=== PATIENT | female | born 1955 | race Caucasian/White ===

== ENCOUNTER 2020-02-08 10:32 | Outpatient (REF) | payer MEDICARE, SELFPAY ==
--- NOTE | 2020-02-08 | MM_ITS ---
EXAMINATION: MM SCREENING DIGITAL BREAST TOMOSYNTHESIS, BILATERAL CLINICAL INFORMATION: Screening. Asymptomatic. The lifetime risk of breast cancer based on the Tyrer-Cuzick Model is 9%. COMPARISON: Mammography: 02/02/2019, 01/28/2018 TECHNIQUE: Digital breast tomosynthesis is performed in both the craniocaudal and mediolateral oblique views along with computer-aided detection (CAD). Synthesized 2D images are generated from the tomosynthesis. Additional exaggerated left CC view is provided. FINDINGS: There are scattered areas of fibroglandular density (ACR BI-RADS breast composition Category b). Breast tissue composition borders on predominantly fatty. Background stromal densities are stable. There is no interval mass or architectural abnormality or abnormal calcifications. The axilla and skin contours are unremarkable. MM/MM tomosynthesis screening BI IMPRESSION: No mammographic evidence of malignancy. ASSESSMENT: BI-RADS 1: Negative RECOMMENDATION: Routine annual mammography screening. This patient's information was entered into a reminder system with a target due date for their next mammogram.
== END 2020-02-08 10:33 | disposition home or self-care (01) ==
LOC: HO.MAMMO 10:32
PROVIDERS: PCP Nurse Practitioner Family; Visit Provider Nurse Practitioner Family
DX: Z12.31 Encounter for screening mammogram for malignant neoplasm of breast (principal)
CPT/HCPCS: 77063; 77067

== ENCOUNTER 2021-02-09 10:32 | Outpatient (REF) | payer MEDICARE, SELFPAY ==
--- NOTE | ~2021-02-09 | MM_ITS ---
EXAMINATION: MM SCREENING DIGITAL BREAST TOMOSYNTHESIS, BILATERAL CLINICAL INFORMATION: Screening. Asymptomatic. The lifetime risk of breast cancer based on the Tyrer-Cuzick Model is 8%. COMPARISON: Mammography: 02/08/2020, 02/02/2019, 01/28/2018 TECHNIQUE: Digital breast tomosynthesis is performed in both the craniocaudal and mediolateral oblique views along with computer-aided detection (CAD). Synthesized 2D images are generated from the tomosynthesis. FINDINGS: There are scattered areas of fibroglandular density (ACR BI-RADS breast composition Category b). There are no significant masses, abnormal calcifications, or other abnormalities. MM/MM tomosynthesis screening BI IMPRESSION: No mammographic evidence of malignancy. ASSESSMENT: BI-RADS 1: Negative RECOMMENDATION: Routine annual mammography screening. This patient's information was entered into a reminder system with a target due date for their next mammogram.
== END 2021-02-09 10:33 | disposition home or self-care (01) ==
LOC: HO.MAMMO 10:32
PROVIDERS: PCP Nurse Practitioner Family; Visit Provider Nurse Practitioner Family
DX: Z12.31 Encounter for screening mammogram for malignant neoplasm of breast (principal)
CPT/HCPCS: 77063; 77067

== ENCOUNTER 2021-11-25 14:41 | Outpatient (REF) | payer MEDICARE, SELFPAY ==
--- NOTE | ~2021-11-25 | MM_ITS ---
EXAMINATION: MM DIAGNOSTIC DIGITAL BREAST TOMOSYNTHESIS, BILATERAL US DIAGNOSTIC ULTRASOUND BREAST, LEFT CLINICAL INFORMATION: 66-year-old with superficial palpable area left breast lower inner quadrant. History recent ecchymosis in this area left breast. Due for yearly. Family history breast cancer, sister, age 40. The lifetime risk of breast cancer based on the Tyrer-Cuzick Model is 8%. COMPARISON: Mammography: 02/09/2021, 02/08/2020, 02/02/2019 TECHNIQUE: Digital breast tomosynthesis is performed in both the craniocaudal and mediolateral oblique views along with computer-aided detection (CAD). Synthesized 2D images are generated from the tomosynthesis. Additional spot rolled left CC view is performed. Ultrasound left breast is targeted to the palpable concern lower inner breast. Grayscale imaging and color Doppler are performed without and with harmonics. FINDINGS: There are scattered areas of fibroglandular density (ACR BI-RADS breast composition Category b). Breast tissue composition borders on predominantly fatty. The area of clinical concern left breast corresponds to a very subtle oval faint density approximately 0.7 x 1.1 cm with a smaller central fatty composition, suggesting fat necrosis. The remainder of the left breast and the right breast are unremarkable. The right breast shows no mass or architectural abnormality. Neither breast shows abnormal calcifications. The axilla are unremarkable. No skin thickening or coarsening of the Cheko's ligaments. Ultrasound left breast demonstrates subtle anechoic lesion superficial breast 9:00 position measuring approximately 1.0 x 0.3 x 0.7 cm. There is very subtle surrounding hyperechogenicity. There is no increased or decreased through transmission of sound. No surrounding or internal color flow. Findings are suggestive of fat necrosis. Results are discussed with the patient at time of visit. The left mammographic and ultrasound findings are suggestive of benign fat necrosis and consistent with the clinical history of recent left breast ecchymosis. Follow-up imaging in 6 months is recommended. MM/MM tomosynthesis diagnostic BI IMPRESSION: Left: -Subtle oval area of probable fat necrosis at site of clinical concern lower inner left breast. Right: -No mammographic evidence of malignancy. ASSESSMENT: BI-RADS 3: Probably Benign RECOMMENDATION: Diagnostic left mammography and targeted ultrasound in 6 months. This patient's information was entered into a reminder system with a target due date for their next mammogram.
== END 2021-11-25 14:42 | disposition home or self-care (01) ==
LOC: HO.MAMMO 14:41
PROVIDERS: Visit Provider Nurse Practitioner Family
DX: N63.24 Unspecified lump in the left breast, lower inner quadrant (principal); Z80.3 Family history of malignant neoplasm of breast
CPT/HCPCS: 76642; 77062; 77066

== ENCOUNTER 2022-06-02 13:15 | Outpatient (REF) | payer MEDICARE, SELFPAY ==
--- NOTE | ~2022-06-02 | MM_ITS ---
EXAMINATION: MM DIAGNOSTIC DIGITAL BREAST TOMOSYNTHESIS, LEFT US DIAGNOSTIC ULTRASOUND BREAST, LEFT CLINICAL INFORMATION: Short interval six-month follow-up probable focal fat necrosis superficial 9:00 left breast. Prior history ecchymosis near this area, subsequently resolved. Patient's palpable concern resolved. Family history breast cancer, sister The lifetime risk of breast cancer based on the Tyrer-Cuzick Model is 8%. COMPARISON: Mammography: 11/25/2021 (diagnostic, BI-RADS 3), 02/09/2021, 02/08/2020, 02/02/2019 TECHNIQUE: Digital breast tomosynthesis is performed in both the craniocaudal and mediolateral oblique views along with computer-aided detection (CAD). Synthesized 2D images are generated from the tomosynthesis. Ultrasound left breast is targeted to the medial breast using grayscale imaging and color Doppler without and with harmonics. FINDINGS: There are scattered areas of fibroglandular density (ACR BI-RADS breast composition Category b). Breast tissue composition borders on predominantly fatty. The area for follow-up is substantially decreased in conspicuity. There is no developing density or interval architectural abnormality. No skin thickening. No abnormal calcifications in the left breast. No axillary adenopathy. Skin contours are smooth. Ultrasound demonstrates small hypoechoic area with surrounding hyperechogenicity substantially decreased in size from prior imaging. Results are discussed with the patient at time of visit. The findings are regressing as anticipated. Management plan is for diagnostic mammography at time of annual bilateral exam, due in 6 months. MM/MM tomosynthesis diagnostic LT IMPRESSION: Suspected fat necrosis mid medial left breast is decreased on both mammography and ultrasound as anticipated. No developing density or suspicious changes. ASSESSMENT: BI-RADS 3: Probably Benign RECOMMENDATION: Diagnostic mammography at time of annual bilateral mammography, due in 6 months. This patient's information was entered into a reminder system with a target due date for their next mammogram.
== END 2022-06-02 13:16 | disposition home or self-care (01) ==
LOC: HO.MAMMO 13:15
PROVIDERS: Visit Provider Nurse Practitioner Family
DX: N63.25 Unspecified lump in the left breast, overlapping quadrants (principal)
CPT/HCPCS: 76642; 77061; 77065

== ENCOUNTER 2022-12-22 12:14 | Outpatient (REF) | payer MEDICARE, SELFPAY ==
--- NOTE | ~2022-12-22 | MM_ITS ---
EXAMINATION: MM DIAGNOSTIC DIGITAL BREAST TOMOSYNTHESIS, BILATERAL CLINICAL INFORMATION: Follow-up probable focus of fat necrosis and bruising left breast 9:00 axis. COMPARISON: Mammography: 06/02/2022 mammography and ultrasound, as well as 11/25/2021. TECHNIQUE: Digital breast tomosynthesis is performed in both the craniocaudal and mediolateral oblique views along with computer-aided detection (CAD). Synthesized 2D images are generated from the tomosynthesis. FINDINGS: There are scattered areas of fibroglandular density (ACR BI-RADS breast composition Category b). There are no suspicious masses, suspicious grouped calcifications, or areas of architectural distortion in either breast. The parenchymal pattern is stable from prior exams. The previously seen subtle density superficially at the 9:00 axis has resolved. MM/MM tomosynthesis diagnostic BI IMPRESSION: There are no findings suspicious for malignancy in either breast. The previously seen subtle density superficially at the 9:00 axis of the left breast has resolved. Recommend returning to routine screening mammography. ASSESSMENT: BI-RADS BI-RADS 1 - Negative RECOMMENDATION: 1 year F/U Results were provided to the patient at time of visit by the technologist. This patient's information was entered into a reminder system with a target due date for their next mammogram.
== END 2022-12-22 12:15 | disposition home or self-care (01) ==
LOC: HO.MAMMO 12:14
PROVIDERS: PCP Internal Medicine; Visit Provider Nurse Practitioner Family
DX: N63.25 Unspecified lump in the left breast, overlapping quadrants (principal)
CPT/HCPCS: 77062; 77066

== ENCOUNTER → 2022-12-22 12:30 | Outpatient (BNV) | payer MEDICARE, SELFPAY | PROVIDERS: PCP Internal Medicine; Visit Provider Radiology Diagnostic Radiology | DX: N64.1 Fat necrosis of breast (principal) | CPT/HCPCS: 77066 ==

== ENCOUNTER 2023-11-06 07:10 | Day surgery (SDC) | payer MEDICARE, SELFPAY ==
[2023-11-05 07:00] VITALS: BMI 39.6
--- NOTE | 2023-11-05 10:07 | P.CONAN_ITS ---
Documented by User: Kandy Felix NP 11/05/23 10:07 HPI - Anesthesia Eval Consult details Narrative: 68yo F for Upper Endoscopy PMFSH Past Medical History Medical History Weakness Thyroid disease HTN (hypertension) Hiatal hernia GERD (gastroesophageal reflux disease) Surgical History Surgical History Hx of cataract extraction Hx of dilation and curettage History of carpal tunnel surgery of right wrist History of right hip replacement History of surgery on lower extremity History of esophagogastroduodenoscopy (EGD) H/O colonoscopy Social History Social History Patient Tobacco Use Status: Former Tobacco user Use of substances other than those prescribed or required for medical reasons: No Have you been hit, kicked, punched, or otherwise hurt by someone within the past year? If so, by whom?: No Are you DNR?: No Advance Directives: No Advance Directives Information Provided: Yes Recently lost weight without trying: No Nutrition Risks: No Nutritional Risk Meds Allergies Allergy/AdvReac Type Severity Reaction Status Date / Time No Known Allergies Allergy Verified 11/06/23 08:00 Home Medications ?Medication ?Instructions ?Recorded ?Confirmed ?Last Taken ?Type albuterol sulfate 90 mcg/actuation 2 puff inhalation Q4-6H 11/05/23 11/06/23 11/05/23 History aerosol inhaler amlodipine 5 mg-benazepril 10 mg 1 cap PO DAILY 11/05/23 11/06/23 11/05/23 History capsule cholecalciferol (vitamin D3) 25 25 mcg PO DAILY 11/05/23 11/06/23 11/05/23 History mcg (1,000 unit) capsule (Vitamin D3) cranberry fruit 450 mg tablet 450 mg PO DAILY 11/05/23 11/06/23 11/05/23 History (cranberry) cyanocobalamin (vitamin B-12) 1,000 mcg PO DAILY 11/05/23 11/06/23 11/05/23 History 1,000 mcg tablet (Vitamin B-12) fexofenadine 180 mg tablet 180 mg PO DAILY PRN Allergy 11/05/23 11/05/23 Unknown History (Joslyn Allergy) Symptoms fluticasone propionate 110 1 puff inhalation BID PRN 11/05/23 11/05/23 Unknown History mcg/actuation HFA aerosol inhaler Shortness Of Breath Or Wheezing gabapentin 600 mg tablet 600 mg PO DAILY 11/05/23 11/06/23 11/05/23 History ibuprofen 200 mg tablet 200 mg PO Q6H PRN Pain 11/05/23 11/06/23 10/30/23 History levothyroxine 150 mcg tablet 150 mcg PO DAILY 11/05/23 11/06/23 11/05/23 History omeprazole 40 mg capsule,delayed 40 mg PO BID 11/05/23 11/06/23 11/06/23 History release simvastatin 20 mg tablet 20 mg PO BEDTIME 11/05/23 11/06/23 11/05/23 History Exam Height,Weight and Vital Signs: Height 5 ft 4 in Weight 104.78 kg Assessment and Plan Assessment Anesthesia Assessment: Chart Reviewed Documented by User: Letitia Elliott MD 11/06/23 08:37 [facility] Active Problems Active Problems: HTN Hyperlipidemia GERD Hypothyroidism Right LE nerve pain Increased BMI Post- polio syndrome- Left LE weakness H/o bronchitis. Albuterol prn Past Medical History Medical History Weakness Thyroid disease HTN (hypertension) Hiatal hernia GERD (gastroesophageal reflux disease) Family History Family history of problems with anesthesia: No Surgical History Surgical History Hx of cataract extraction Hx of dilation and curettage History of carpal tunnel surgery of right wrist History of right hip replacement History of surgery on lower extremity History of esophagogastroduodenoscopy (EGD) H/O colonoscopy History of Problems with Anesthesia: No Social History Social History Patient Tobacco Use Status: Former Tobacco user Use of substances other than those prescribed or required for medical reasons: No Have you been hit, kicked, punched, or otherwise hurt by someone within the past year? If so, by whom?: No Are you DNR?: No Advance Directives: No Advance Directives Information Provided: Yes Recently lost weight without trying: No Nutrition Risks: No Nutritional Risk Meds Allergies Allergy/AdvReac Type Severity Reaction Status Date / Time No Known Allergies Allergy Verified 11/06/23 08:00 Home Medications ?Medication ?Instructions ?Recorded ?Confirmed ?Last Taken ?Type albuterol sulfate 90 mcg/actuation 2 puff inhalation Q4-6H 11/05/23 11/06/23 11/05/23 History aerosol inhaler amlodipine 5 mg-benazepril 10 mg 1 cap PO DAILY 11/05/23 11/06/23 11/05/23 History capsule cholecalciferol (vitamin D3) 25 25 mcg PO DAILY 11/05/23 11/06/23 11/05/23 Hi story mcg (1,000 unit) capsule (Vitamin D3) cranberry fruit 450 mg tablet 450 mg PO DAILY 11/05/23 11/06/23 11/05/23 History (cranberry) cyanocobalamin (vitamin B-12) 1,000 mcg PO DAILY 11/05/23 11/06/23 11/05/23 History 1,000 mcg tablet (Vitamin B-12) fexofenadine 180 mg tablet 180 mg PO DAILY PRN Allergy 11/05/23 11/05/23 Unknown History (Joslyn Allergy) Symptoms fluticasone propionate 110 1 puff inhalation BID PRN 11/05/23 11/05/23 Unknown History mcg/actuation HFA aerosol inhaler Shortness Of Breath Or Wheezing gabapentin 600 mg tablet 600 mg PO DAILY 11/05/23 11/06/23 11/05/23 History ibuprofen 200 mg tablet 200 mg PO Q6H PRN Pain 11/05/23 11/06/23 10/30/23 History levothyroxine 150 mcg tablet 150 mcg PO DAILY 11/05/23 11/06/23 11/05/23 History omeprazole 40 mg capsule,delayed 40 mg PO BID 11/05/23 11/06/23 11/06/23 History release simvastatin 20 mg tablet 20 mg PO BEDTIME 11/05/23 11/06/23 11/05/23 History Exam Height,Weight and Vital Signs: Height 5 ft 4 in Weight 104.78 kg Vital Signs Temp Pulse Resp BP Pulse Ox O2 Del Method 11/06/23 07:57 98.6 F 76 16 176/82 H 96 Room Air Airway Mallampati Class: III (Small mouth) TM Dist: >3cm Neck ROM: Full Partial: Upper Loose/Missing/Broken Teeth: Yes (Denies broken or loose teeth) Heart: RRR Lungs: CTAB Assessment and Plan Assessment Anesthesia Assessment: Anesthesia Plan Discussed and Chart Reviewed Final Anesthetic Review Family History of Problems with Anesthesia: No History of Problems with Anesthesia: No NPO: Yes ASA Class: III Final Preanesthetic Review: No Changes in Pt Med Stat, Meds/Allgs Chart Reviewed, Consent Obtained/Reviewed and Anes Risks/Benef Reviewed Patient Risk: Intermediate Procedure Risk: Low Assessment/Block/Sedation in SS: Assess/Block/Sedation-SS Anesthetic Plan Anesthetic Plan: TIVA Disposition: Standard PACU
[2023-11-06 07:50] VITALS: BMI 39.5
[2023-11-06 07:57] VITALS: BP 176/82; PULSE 76; RESP 16; TEMP 37; O2SAT 96
[2023-11-06] MEDS: Lactated Ringers 1,000 ML 100 ML IVCONT (07:58)
--- NOTE | 2023-11-06 09:08 | PM.OP ---
Brief Operative Note Date of Service: 11/06/23 Pre-op diagnosis: GERD, Globus Post-op diagnosis: other (Hiatal hernia, R/O EoE) Procedure: EGD with biopsies Surgeon: Logan Solorio MD Anesthesia: MAC Was an [employer] used for this Procedure?: No Estimated blood loss (mL): 2.0 Pathology: other (A. EG Junction at 32cm B. Esophagus 20-25cm) Condition: stable Disposition: PACU
[2023-11-06 09:10] VITALS: BP 120/62; PULSE 78; RESP 16; TEMP 36.2; O2SAT 95
[2023-11-06 09:25] VITALS: BP 136/72; PULSE 64; RESP 18; TEMP 36.3; O2SAT 98
--- NOTE | 2023-11-06 09:33 | OP_ITS ---
DATE OF SERVICE: 11/06/2023 SURGEON: Logan Solorio MD INDICATIONS: The patient presents for evaluation of chronic gastroesophageal reflux and a globus sensation. Full consent has been obtained from her for this, including risks of bleeding and perforation. PREOPERATIVE DIAGNOSIS: POSTOPERATIVE DIAGNOSIS: PROCEDURE PERFORMED: Esophagogastroduodenoscopy with biopsies. ESTIMATED BLOOD LOSS: COMPLICATIONS: ANESTHESIA: Monitored anesthesia care. ASSISTANTS: SPECIMENS: PREOPERATIVE DIAGNOSES: Gastroesophageal reflux and globus. POSTOPERATIVE DIAGNOSES: Gastroesophageal reflux and globus, hiatal hernia, rule out eosinophilic esophagitis. DESCRIPTION OF PROCEDURE: The patient was placed in the left lateral decubitus position. The Olympus video gastroscope was passed in the posterior oropharynx and upper esophagus under direct vision. The scope was passed slowly into the distal esophagus. The gastroesophageal junction appeared at 32 cm. There was some slight irregularity consistent with some reflux and possibly a small area of Noriega mucosa. There was no esophagitis nor any lesions. The scope entered the stomach. There was a moderate-sized hiatal hernia with a diaphragmatic indentation seen at approximately 35 or 36 cm. The hiatal hernia mucosa appeared normal. The scope was advanced to the pylorus, and the duodenum was cannulated to the descending portion. The duodenum including the bulb appeared normal without mass or ulceration. The scope was withdrawn back to the stomach. The gastric antrum and body appeared normal with good peristalsis. The scope was retroflexed, visualizing the proximal stomach carefully, which appeared normal, without any sign of mass or ulceration. The scope was straightened and withdrawn back to the esophagus. Biopsies were obtained at the EG junction at 32 cm. The scope was then withdrawn through the remainder of the esophagus. The esophagus appeared somewhat tortuous but no sign of any other mucosal abnormalities. There were no proximal esophageal rings. I did obtain biopsies between 20 and 25 cm. The scope was withdrawn from the patient. She tolerated the procedure well, and was returned to the recovery area in stable condition. IMPRESSION: 1. Hiatal hernia. 2. Gastroesophageal reflux. PLAN: The results of the biopsies will be checked. Since I saw her in the office in June, she has been using omeprazole 40 mg twice a day instead of the once a day as she had been having increasing heartburn on the just daily dose. She does report that since being on the omeprazole twice a day, she has had significant improvement in her heartburn symptoms. She thinks the globus sensation is somewhat diminished as well. At this point, I would have her continue the b.i.d. omeprazole. She will see me in followup as well. MD RETA Brady/DEBBY / [phone]
== END 2023-11-06 10:06 | disposition home or self-care (01) ==
PROVIDERS: PCP Internal Medicine; Visit Provider Internal Medicine
PROC: 0DJ08ZZ Inspection of Upper Intestinal Tract, Via Natural or Artificial Opening Endoscopic (ICD-10-PCS; CPT 43235; principal; 2023-11-06 08:30)
DX: K21.9 Gastro-esophageal reflux disease without esophagitis (principal); R09.89 Other specified symptoms and signs involving the circulatory and respiratory systems; R09.A2 Foreign body sensation, throat; K44.9 Diaphragmatic hernia without obstruction or gangrene; I10 Essential (primary) hypertension; Z79.899 Other long term (current) drug therapy; Z87.891 Personal history of nicotine dependence
CPT/HCPCS: 43239; 88305; 88313; J2704

== ENCOUNTER 2023-12-29 08:52 | Outpatient (REF) | payer MEDICARE, SELFPAY ==
--- NOTE | ~2023-12-29 | MM_ITS ---
EXAMINATION: MM SCREENING DIGITAL BREAST TOMOSYNTHESIS, BILATERAL CLINICAL INFORMATION: Screening. Asymptomatic. COMPARISON: Mammography: Comparison is made with available priors TECHNIQUE: Digital breast mammography with tomosynthesis is performed in both the craniocaudal and mediolateral oblique views along with computer-aided detection (CAD). FINDINGS: There are scattered areas of fibroglandular density (ACR BI-RADS breast composition Category b). There are no significant masses, abnormal calcifications, or other abnormalities. MM/MM tomosynthesis screening BI IMPRESSION: No mammographic evidence of malignancy. ASSESSMENT: BI-RADS BI-RADS 1 - Negative RECOMMENDATION: Routine annual mammography screening. 1 year F/U This examination should not preclude the clinical evaluation of a suspicious palpable abnormality. This patient's information was entered into a reminder system with a target due date for their next mammogram. Electronically signed by: Sue Dasilva DO 01/06/2024 12:20 PM [facility]
--- NOTE | ~2023-12-29 | MM_ITS ---
EXAMINATION: BONE DENSITOMETRY CLINICAL INDICATION: Encounter for screening for osteoporosis. COMPARISON: Baseline BD dated 01/06/2014. TECHNIQUE: Using a [employer] DXA System (software version: 13.1) manufactured by [employer], dual-energy x-ray absorptiometry was performed of the lumbar spine and left hip. The images are of good technical quality. Summary results are attached. FINDINGS: LEFT FEMUR, NECK: Current: BMD 0.949 g/cm2, Z-score 0.2, T-score -0.6, normal. Baseline: BMD 1.108 g/cm2. LEFT FEMUR, TOTAL: Current: BMD 0.967 g/cm2, Z-score 0.2, T-score -0.3, normal, 10.5% decrease from baseline (<5% change is not significant). Baseline: BMD 1.081 g/cm2. AP SPINE L1-L3 (excluding L4): The data of L1-L4 has been changed to exclude the L4 vertebral body, because significant degenerative change at this level may cause overestimation of lumbar spine density. Current: BMD 1.652 g/cm2, Z-score 4.5, T-score 4.0, normal, 3.5% increase from baseline (<5% change is not significant). Baseline: BMD 1.596 g/cm2. IDENTIFIED RISK FACTORS: Height loss, osteoporosis, recurrent falls, menopause. HISTORY OF FRACTURE: None listed. MEDICATIONS: Vitamin D. MM/XR DEXA axial skeleton IMPRESSION: 1. DIAGNOSIS: Normal bone density based on the lowest T-score value of -0.6 in the femoral neck applying World Health Organization criteria. 2. 10-YEAR FRACTURE RISK PREDICTION, FRAX: According to the guidelines, FRAX calculation should only be performed on patients in the osteopenia bone density category. Therefore, FRAX was not performed on this patient. 3. Treatment Recommendations: NOF guidelines recommend consideration for treatment in postmenopausal women and men age 50 and older presenting with the following: -A hip or vertebral (clinical or morphometric) fracture. -T-score less than or equal to -2.5 at the femoral neck or spine after appropriate evaluation to exclude secondary causes. -Low bone mass at the hip or spine and a 10-year fracture probability by FRAX of greater than or equal to 3% for hip fracture or greater than or equal to 20% for major osteoporotic fracture based on the [place] adapted WHO algorithm. 4. Other Recommendations: All treatment decisions require clinical judgment and consideration of individual patient factors, including patient preferences, comorbidities, previous drug use, risk factors not captured in the FRAX model (e.g. frailty, falls, vitamin D deficiency, increased bone turnover, interval significant decline in bone density) and possible under or overestimation of fracture risk by FRAX. 5. Levoscoliosis. FUTURE SCAN RECOMMENDATION: People with diagnosed cases of osteoporosis or at high risk for fracture should have regular bone mineral density tests. For patients eligible for Medicare, routine testing is allowed once every 2 years. The testing frequency can be increased to one year for patients who have rapidly progressing disease, those who are receiving or discontinuing medical therapy to restore bone mass, or have additional risk factors. Electronically signed by: Bonilla Santana MD 12/29/2023 12:15 PM [facility]
== END 2023-12-29 08:53 | disposition home or self-care (01) ==
LOC: HO.MAMMO 08:52
PROVIDERS: PCP Nurse Practitioner Family; Visit Provider Nurse Practitioner Family
DX: Z12.31 Encounter for screening mammogram for malignant neoplasm of breast (principal); Z13.820 Encounter for screening for osteoporosis; Z78.0 Asymptomatic menopausal state
CPT/HCPCS: 77063; 77067; 77080

== ENCOUNTER → 2023-12-29 09:00 | Outpatient (BNV) | payer MEDICARE, SELFPAY | PROVIDERS: PCP Nurse Practitioner Family; Visit Provider Internal Medicine | DX: Z12.31 Encounter for screening mammogram for malignant neoplasm of breast (principal) | CPT/HCPCS: 77063; 77067 ==

== ENCOUNTER 2025-01-03 09:49 | Outpatient (REF) | payer MEDICARE, SELFPAY ==
--- OUTSIDE RECORDS SUMMARY | 2023-11-06 03:30 | XMS_ITS ---
Author Organization [facility] Address [address] [place] [id number] Care Team Providers Care Olive Grower Name Role Phone Connor Simeon MD Primary Care Provider Logan Garcia [phone] REASON FOR VISIT gerd,globus sensation Problems Problem Type SNOMED Code ICD Code Onset Dates Problem Status W/U Status Risk Notes Problem Gastro-esophagea l reflux disease without esophagitis (167883228) Gastro-esophage al reflux disease without esophagitis (K21.9) Active confirmed Problem Globus sensation (216718447) Globus sensation (F45.8) Active confirmed Encounters Encounter Location Date Provider Diagnosis [facility] Outpatient [address], [place] [id number] 11/06/2023 Logan Solorio Gastro-esophageal reflux disease without esophagitis K21.9 ; Hiatal hernia K44.9 and Globus sensation F45.8 Assessments Encounter Date Diagnosis (ICD Code) Assessment Notes Treatment Notes Treatment Clinical Notes Section Notes 11/06/2023 Gastro-esophagea l reflux disease without esophagitis (ICD-10 - K21.9) 11/06/2023 Hiatal hernia (ICD-10 - K44.9) 11/06/2023 Globus sensation (ICD-10 - F45.8) Plan Of Treatment No Information Progress Notes * TRISTA TREJO ADOB:[birth year] (69 yo F)Acc No.[id number]:11/06/2023 EGD/MAC Patient: TRISTA SARAVIA Provider: Skye Solorio MD :1955 A ge:68 Y S ex:Female Date:11/06/2023 Address: [address] [id number] Pcp:Connor Simeon MD Subjective: * Chief Complaints: * 1 . Gerd,globus sensation. * Medical History: Objective: * Vitals: Assessment: * Assessment: 1. G sharri-esophageal reflux disease without esophagitis - K21.9 (Primary) 2 .?Hiatal hernia - K44.9 3 . G lobus sensation - F45.8 Plan: * Treatment: * Procedure Codes: 4 3239 UPPER GI ENDOSCOPY, BIOPSY * * The named appointment provid er may or may not be the originator of this progress note, and it is not deemed complete until electronically signed by the appointment provider. Sign off status: Pending * Provider: Skye Solorio MD Date: 0 11/06/2023 Generated for Chel monk/William/Fransiscoitting on: 1 03/05/2024 11:03 AM EST
--- OUTSIDE RECORDS SUMMARY | 2024-03-31 04:40 | XMS_ITS ---
Author Organization [facility] Address [address] [place] [address] Care Team Providers Care Superintendent Pipelines Name Role Phone Cailin SANTACRUZ, Connor Primary Care Provider Logan Garcia [phone] REASON FOR VISIT Patient presents today for gerd, hiatal hernia Encounters Encounter Location Date Provider Diagnosis [facility] [address] [place] [address] 03/31/2024 Logan Solorio Plan Of Treatment No Information Progress Notes * TRISTA TREJO ADOB:[birth year] (69 yo F)Acc No.[id number]:03/31/2024 Progress Notes Patient: TRISTA SARAVIA Provider: Skye Solorio MD :1955 A ge:69 Y S ex:Female Date:03/31/2024 [facility]: [facility] Pcp:Connor Simeon MD Subjective: * Chief Complaints: * 1 . Patient presents today for gerd, hiatal hernia. * Medical History: Objective: * Vitals: Assessment: Plan: * Treatment: * * The named appointment provid er may or may not be the originator of this progress note, and it is not deemed complete until electronically signed by the appointment provider. Sign off status: Pending * Provider: Skye Solorio MD Date: 0 03/31/2024 Generated for Printi ng/Faveronicag/eTransmitting on: 03/05/2024 11:04 AM EST
--- NOTE | ~2025-01-03 | MM_ITS ---
EXAMINATION: MM SCREENING DIGITAL BREAST TOMOSYNTHESIS, BILATERAL CLINICAL INFORMATION: Screening. Asymptomatic. COMPARISON: Comparison made to multiple prior, most recent December 29, 2023, and most remote February 02, 2019. TECHNIQUE: Digital breast tomosynthesis is performed in mediolateral oblique and craniocaudal views along with computer-aided detection (CAD). Synthesized 2D images are generated from the tomosynthesis. FINDINGS: BREAST COMPOSITION: There are scattered areas of fibroglandular density. BILATERAL BREASTS: No significant masses, suspicious calcifications or other abnormalities are seen in either breast. MM/MM tomosynthesis screening BI IMPRESSION: BILATERAL BREASTS: Negative, no mammographic evidence of malignancy. Normal interval follow-up is recommended in 12 months. ASSESSMENT: BI-RADS: Category 1: Negative RECOMMENDATION: Routine annual mammography screening. FOLLOW-UP: 1 year F/U This examination should not preclude the clinical evaluation of a suspicious palpable abnormality. This patient's information was entered into a reminder system with a target due date for their next mammogram. Electronically signed by: Mary Best MD 01/04/2025 09:31 PM [facility]
--- OUTSIDE RECORDS SUMMARY | 2025-01-03 11:04 | XMS_ITS | Data Portability ---
Author Organization [facility], [facility] Address [address] [place] [address] Care Team Providers Care Verse Writer Name Role Phone PAM LEO Primary Care Provider Assessment Encounter Date Assessment Date Assessment LastModified by Organization Details LastModified Time 12/03/2023 12/03/2023 I am seeing the patient today under the supervision of manuel who was available but who did not see the patient. HPI: Patient presents today right foot pain history of plantar fasciitis. His previous injections prior comes in today discussing she wants potentially have another one Past family, medical, social history and review of systems has been reviewed, updated and is located in the patient s chart. Examination: Examination of the foot demonstrates the hindfoot and midfoot to be of normal and symmetric alignment in both the seated and stance position. Pulse is palpable and symmetric at the dorsalis pedis and posterior tibial arteries. Sensation is grossly intact to light touch throughout a complete and symmetric distribution. Muscle exam demonstrates symmetric tone and contour, with 5/5 strength to resisted dorsiflexion, plantarflexion, inversion, and eversion. Range of motion is found to be supple, nonpainful, and symmetric at the tibiotalar, subtalar, TMT, and MTP articulations. Symmetric stability with a firm endpoint is found with manual tibiotalar tilt and translational testing. Pain plantar surface right foot X-rays reviewed at [facility] spurring noted off the base of the calcaneus 3 views interpreted by myself of the foot Impression: Plantar fasciitis patient will continue her home stretching program will follow-up after her injection please see procedure note. Follow-up p.r.n.: Question surgical plan Plan: [facility] speech recognition automotive drivability technician software was used to create portions of this document. An attempt at proofreading has been made to minimize errors. Please call for corrections. [email or web address] Not available 12/03/2023 10:52:08 Plan of Treatment Reminders Order Date Submit Date Provider Last Modified By Organization Details Last Modified Time Details Appointments None recorde d. Lab None recorde d. Referral None recorde d. Procedures None recorde d. Surgeries None recorde d. Imaging XR, knee, 4 or more view - 4v right knee, rm 202 025 06/02/19 25 EM[facility], [address], [place], [address], 5 13:58:50 XR, foot, 3 or more view - uc 5 3v right foot 024 12/03/19 24 [email or web address] [facility], [address], [place], [address], 4 10:39:36 XR, knee, 4 or more view - 4v right knee, room 208 024 06/19/19 24 [email or web address] [facility], [address], [place], [address], 4 09:14:47 XR, hip, unilate ral, 2 or 3 view - ROOM 208, Right Hip Pain, PT has a RTHR 024 06/19/19 24 [email or web address] [facility], [address], [place], [address], 4 11:48:19 Medication Orders None recorde d. Patient TargetsNo targets recorded. Patient InstructionsNo instructions recorded. Reason for Referral None Reported. Results Created Date Observation Date Name Description Value Unit Range Abnormal Flag Note LastModifiedBy Organization Detail LastModifiedTime 12/03/19 24 12/03/2023 XR, foot, 3 or more view http:/ [email or web address] ?Encry pted=s hAaTro YD8dLq bEUv6g %2BXZw aYqtaq 0bqfl% 2Fg9IQ a4ajBk vP9nXo QUaueC m3YtLR FvZlg J8mAn HZtai3 8q5076 AC0Kqa 3iEVqW vKiQtr MwF INTERFACE [facility] [address], [place], [address], 12/03/2023 10:01:52 12/03/19 24 12/03/2023 XR, foot, 3 or more view [email or web address]:/ [email or web address] ?Encry pted=s hAaTro YD8dLq bEUv6g %2BXZw aYqtaq 0bqfl% 2Fg9IQ a4ajBk vP9nXo QUaueC m3YtLR FvZl J8Boyle HZtai3 9d9575 AC0Kqa 3iEVqW vKiQtr MwF INTERFACE [facility] [address] [facility] [address] [address], [place], [address], 12/03/2023 10:01:54 06/02/19 25 06/01/2024 XR, knee, 4 or more view [email or web address]:/ [email or web address] ?Encry pted=s hAaTro YD8dLq bEUv6g %2BXZw aYqtaq 0bqfl% 2Fg9IQ a4ajBk vP9nXo QUaueC m3YtLR [place] [address] 3y1868 AC0KqY 3mBUqC uKiQtr MwF INTERFACE [facility] [address] [address], [place], [address], 06/01/2024 13:58:50 06/02/19 25 06/01/2024 XR, knee, 4 or more view http:/ [email or web address] ?Encry pted=s hAaTro YD8dLq bEUv6g %2BXZw aYqtaq 0bqfl% 2Fg9IQ a4ajBk vP9nXo QUaueC m3YtLR FvZlgJ JJ8mAn HZtai3 5g2677 AC0KqY 3mBUqC uKiQtr MwF INTERFACE [facility] [address] [facility] [address], [place], [address], 06/01/2024 13:58:52 Result Notes Documentation Provider Name and Address Organization Details Recorded Time Xr, Foot, 3 Or More View : [email or web address] Encrypted=jlXaFdeTK5wBevY Uv6g%6LFHdfEnrvp1nlxf%2Fg 5ROg0hfUrdC6rNtEJcsbBd8Uw TPIxFthUQR0vPjUPoix26g983 3HX0Dmt6qXUcHdLxPukVmM Not Available [facility] 12/03/2023 10:01: 53 Xr, Foot, 3 Or More View : [email or web address] Encrypted=jdPyIxhMG6kMhkS Uv6g%1TTLdfGvxuc6wpgq%2Fg 3ZQb4amTixN2vRrSVrhiLo5Al CUOaXppHQM4cChUUetn23o365 5NQ6Pvw2mTJrTzJlKrrZvS Not Available [facility] 12/03/2023 10:01: 55 Xr, Knee, 4 Or More View : [email or web address] Encrypted=heUyAmeJC3mLeyP Uv6g%2JANmfMzave0cckp%2Fg 7YNh4vxAkoT1eHiEEhlkMu2Lk WZPrGtxJJP7qPxVVgjh13u281 5SU4CgO1mTMnNmFiXsjFkV Not Available [facility] 06/01/2024 13:58: 51 Xr, Knee, 4 Or More View : [email or web address] Encrypted=teEvMsqUS6dRmcX Uv6g%0MQNccVwlvh6bibu%2Fg 8IMv3lwHtoO1nTrLTprsTo5Iw AIRaXljNQC7rWbYPevn72p918 1HU8QtD9dGWjSjJqMtfPxG Not Available [facility] 06/01/2024 13:58: 52 Problems Name Problem SNOMED Code Status Onset Date Resolution Date Notes Provider Name and Address Organization Details Recorded Time Osteoarthri tis of right knee joint 6908227751794 00 Active 2024 Corine Ybarra ttCHRISTINE armstrong [address], [place], [address], [facility] 5 09:39:22 Problem Notes None recorded. Procedures Surgical History Date Name Laterality Status Provider Name and Address Organization Details Recorded Time 5 Gel-One Knee Injection completed Corine Wright PA-C [address], [place], [address], [facility] 08/01/2024 09:39:16 5 Sports Knee 4&1 completed Taco Lizama PA-C [address], [place], [address], [facility] 06/01/2024 14:13:20 5 Other completed Anila Willingham [facility] 06/01/2024 13:48:02 4 Plantar Fascia Kenalog Injection L/R completed Gordon Duque PA-C [address], [place], [address], [facility] 12/03/2023 10:52:18 4 Knee Kenalog 40mg 2cc Injection, L/R completed Taco Lizama PA-C [address], [place], [address], [facility] 06/19/2023 09:05:50 4 Other completed Anila Willingham [facility] 06/01/2024 13:48:02 Imaging Results None recorded. Procedure Notes None recorded. Medical Equipment None Reported. Allergies No known drug allergies Medications Name Sig Start Date Stop Date Status Note LastModified by Organization Details LastModified Time amoxicillin 500 mg capsule 4 pills 1 hour prior to procedure active Not Available Not Available No t Available gabapentin 600 mg tablet active Not Available Not Available Not Available azithromyci n 250 mg tablet 12/02 completed Not Available Not Available Not Available amlodipine 5 mg tablet active Not Available Not Available Not Available omeprazole 40 mg capsule,del ayed release active Not Available Not Available Not Available ketorolac 0.5 % eye drops 12/02 completed Not Available Not Available Not Available Celebrex 200 mg capsule Take 1 capsule(s ) every day by oral route. active Not Available Not Available No t Available simvastatin 20 mg tablet active Not Available Not Available Not Available pseudoephed rine-guaife nesin ER 80-700 mg tablet,exte nded release Percocet 5-325MG Tablet as needed 11/03 completed Statu s: 'Disc ontin ued'; Not Available Not Available Not Available levothyroxi ne 150 mcg tablet active Not Available Not Available Not Available montelukast 10 mg tablet active Not Available Not Available Not Available methylpredn isolone 4 mg tablets in a dose pack 12/02 completed Not Available Not Available Not Available albuterol sulfate HFA 90 mcg/actuati on aerosol inhaler active Not Available Not Available Not Available fluticasone propionate 50 mcg/actuati on nasal spray,suspe nsion active Not Available Not Available Not Available Joslyn-D 24 Hour 05/31 completed Not Available Not Available Not Available Spiriva Respimat 2.5 mcg/actuati on solution for inhalation 1 puff every day by inhalatio n route. 2024 active Not Available Not Available Not Avai lable Vitals Date Recorded Body height Body mass index (BMI) Body weight Provider Name and Address Organization Details Last Updated DateTime 06/01/2024 162.56 cm 36 kg/m2 41433.4 g Anila Willingham [facility] 06/01/2024 13:48:17 Date Recorded Body height Body mass index (BMI) Body weight Provider Name and Address Organization Details Last Updated DateTime 06/19/2023 162.56 cm 34.3 kg/m2 06914.47 g Kenzie Navarro [facility] 06/19/2023 08:20:51 Date Recorded Body height Body mass index (BMI) Body weight Provider Name and Address Organization Details Last Updated DateTime 08/01/2024 162.56 cm 36 kg/m2 37437.4 g [facility] 08/01/2024 09:06:52 Date Recorded Body height Body mass index (BMI) Body weight Provider Name and Address Organization Details Last Updated DateTime 12/03/2023 162.56 cm 36 kg/m2 80178.4 g [facility] 12/03/2023 09:57:00 Social History None recorded. Functional Status None recorded. Mental Status None recorded. Family History Nothing Reported. Medical History Condition Response Allergies/Hayfever N Coronary Artery Disease N Anxiety/Depression N Breathing or lung disorders N Emphysema N Nerve Disorders N Thyroid Problems Y COPD N Pacemaker N Anemia N Kidney/Bladder Problems N Vascular Disease N Heart Trouble N Heart Attack (CT) N Gastrointestinal Disease N Cholesterol Y Diabetes N Autoimmune disease N Bleeding Disorder N Inflammatory Joint disease N Orthotics N Arthritis Y Seizures/Epilepsy N Blood Clot N AIDS/HIV N Congestive Heart Failure (CHF) N Acid Reflux (GERD) N Cancer N Stroke N Asthma N Circulation Problems N Peripheral Vascular Disease N Sleep Apnea N Hepatitis N Heart Disease N Rheumatoid Arthritis N Arrhythmia N Pulmonary Embolism N Headaches N Fibromyalgia N Hypertension Y Osteoporosis N Gynecological HistoryNo gynecological history recorded. Obstetrics History GPAL:G 0 P 0 0 0 0 Past Encounters Encounter ID Performer Location Encounter Start Date Encounter Closed Date Diagnosis/Indication Diagnosis SNOMED-CT Code Diagnosis ICD10 Code Diagnosis IMO Codes Diagnosis Note [id number] [facility] [address] [place] [address] 06/19/2023 08:06:52 06/19/2023 09:14:46 History of total replacement of right hip joint 0474804851 65305 Z96.641 Pain of ri ght knee joint 0617854491 50165 M25.561 Osteoarthr itis of right knee joint 9734819796 71845 M17.11 [id number] Gordon Duque PA-C [facility] [address] [place] [address] 12/03/2023 09:41:46 12/29/2023 09:58:19 Pain in right foot 5387806783 68183 M79.217 [id number] Taco Lizama PA-C [facility] [address] [place] [address] 06/01/2024 13:30:48 06/15/2024 12:47:44 Osteoarthritis of right knee joint 4145020257 07462 M17.11 [id number] Corine sanz PA-C [facility] [address] [place] [address] 08/01/2024 08:56:25 08/05/2024 09:11:12 Osteoarthritis of right knee joint 6132519476 53621 M17.11 [id number] Health Concerns Section Related Observation LastModified by Organization Detai ls LastModified Time None Recorded Concern Status LastModified by Organization Details LastModified Time None Recorded Advance Directives Directive None Recorded Payers Insurance Date Sequence Insurance Name Policy Number Policy Neff Covered Member ID Neff Member ID Guarantor Name 08/05/2024 1 [facility] (MEDICARE REPLACEMENT/ ADVANTAGE - PPO) [id number] 1 Lydia Poe [id number] Lydia Poe Notes Date Note Type Note Provider Name and Address Organization Details Recorded Time 4 text/html I am seeing the patient today under the supervision of Dr. Thomson who was available but who did not see the patient.HPI:Patient returns to the office with 2 orthopedic problems. She has a history of right total hip replacement done by Dr. Centeno in 2004. She has had some back discomfort. She has had pain radiating down the leg at times from her back. She denies groin pain. Secondarily, she complains of right knee pain. She has pain over the anterior aspect of the right knee. She has pain going up and down the stairs.Past family, medical, social history and review of systems has been reviewed, updated and is located in the patient s chart.Examination:The patient is well appearing and in no apparent distress. Alert and oriented x3. Gait is symmetric. No significant swelling, warmth, erythema about the right hip. Range of motion right hip is flexion to 90 with internal and external rotation to approximately 1 without pain or irritability. Good strength of the right hip. Mild tenderness of the medial and lateral joint line of the right knee. Range of motion right knee is full extension and flexion and 20 with mild discomfort. Mild tenderness of the lower back. Peripheral, vascular, lymphatic examination, skin, neurological, coordination, reflexes, sensation are within normal limits.X-rays ordered, obtained and reviewed at [facility] 2 views of the right total hip demonstrate good implant interfaces in good alignment. As compared to previous films are unchanged. 4 views of the right knee demonstrate moderate medial and lateral compartment arthritis of the right knee with mild to moderate patellofemoral arthritis of the right knee.Impression:Moderate arthritis of the right knee. History of right total hip replacement with lumbar radiculitis right lower extremityPlan:I reviewed the x-rays and diagnoses with the patient. In regards to the hip we discussed total hip precautions. She understands that some of the discomfort into the right leg and thigh is due to her back issue. Her hip replacement looks fine. We discussed conservative management for the old lumbar spine issues. We discussed conservative management for the arthritic knee. Activity modification discussed. P.r.n. NSAIDs can be used. We discussed the risks associated with NSAID use. We discussed injection therapies. Injected 80 mgs of Kenalog, and 8cc of % Marcaine under sterile conditions into the right knee. Patient tolerated the injection well. Moderating activities recommended. She understands she can have these injections every 3-6 months of a benefit her and the pain returns. Taco Lizama PA-C [facility] [address], [place], [address], [facility] 06/19/2023 09:06:53 5 text/html I am seeing the patient today under the supervision of Dr. Foote who was available but who did not see the patient.HPI:Patient is a 69-year-old female comes the office complaints of discomfort about her right knee. She fell around the holiday. She landed directly on the right knee. She had a small bruise over the anterior aspect of the knee. However over the past several months she has had progressive pain over the medial side of the knee. She cannot walk retirement. She denies giving out or locking episodes. He has a history of a right total hip. She has no pain in the right total hip.Past family, medical, social history and review of systems has been reviewed, updated and is located in the patient s chart.Examination:The patient is well appearing and in no apparent distress. Alert and oriented x3. Gait is symmetric. Minimal swelling of the right knee. There is positive tenderness of the medial and lateral joint line of the right knee. Her active range of motion is just about full extension and flexion near 120 with pain. Good strength and stability of the right knee. Peripheral, vascular, lymphatic examination, skin, neurological, coordination, reflexes, sensation are within normal limits.X-rays ordered, obtained and reviewed at [facility] 4 views right knee reviewed demonstrate moderate medial compartment and lateral compartment arthritis with moderate to severe patellofemoral arthritis of the right knee. There is no fractures evident. There is ossicle's over the anterior aspect of the right knee due to previous [place] baig's.Impression:Ri ght knee arthritis aggravated by fall.Plan:I reviewed the x-rays and diagnosed with the patient. We discussed conservative management for the arthritic change in the right knee. Activity modification discussed. P.r.n. NSAIDs can be used. We discussed the risks associated with NSAID use. We discussed a home exercise program. We discussed formal therapy. We discussed injection therapies both cortisone and Viscoat supplementation. I injected her knee with cortisone. If she does not get substantial relief from this injection, we will consider Visco supplementation. All questions answered to her satisfaction today. Taco Lizama PA-C [address] [facility] [address], [place], [address], [facility] 06/01/2024 14:13:45 5 text/html ROS as noted in the HPI I am seeing the patient today under the supervision of Dr. Marvin was available but who did not see the patient. Reason For Visit Patient is here today for viscosupplementation injection. Patient reports no adverse reaction from previous injections. Physical Findings Evaluation of the knees reveal no evidence of infection, no significant joint effusion, no warmth, or erythema. The injection sites are benign. Calves are supple and nontender. 4+/5 strength. Some discomfort with range of motion. Assessment Osteoarthritis of knee Plan Injection was administered in the office today. I recommend ice, restriction of activities and re-evaluation next week for follow up injection. Corine Wright PA-C [address] [facility] [address], [place], [address], [facility] 08/01/2024 09:39:42 OBGyn Episode No OBEpisode recorded.
--- OUTSIDE RECORDS SUMMARY | 2025-01-03 11:04 | XMS_ITS | Patient Health Record ---
Author Organization [facility] Address [address] [facility] [place] [address] Care Team Providers Care Provider Service Representative Name Role Phone Venancio Powers MD Primary Care Provider Natty Guevara Unavailable [phone] Reason For Referral No Information Medications Medication SIG (Take, Route, Frequency, Duration) Notes Start Date End Date Status Omeprazole 20 MG 1 capsule Orally Onc e a day Active hydroCHLOROthiazide 12.5 MG 1 capsule Or ally Once a day Active Ibuprofen 800 MG 1 tablet Orally Thre e times a day Active Fluticasone Propionate 50 MCG/ACT Nasal; Duration: 30 Unknown Levothyroxine Sodium 125 MCG 1 tablet Or ally Once a day Active Simvastatin 20 MG 1 tablet in the evening Orally Once a day Active Joslyn Active Problems Problem Type SNOMED Code ICD Code Onset Dates Problem Status W/U Status Risk Notes Problem Calcaneal spur of right foot ([id number] 00) Calcaneal spur, right foot (M77.31) Active confirmed Plan Of Treatment Pending Test Test Name Order Date ,[id number] TENDON SHEATH/LIGAMENT 1 Insurance Providers Payer Name Payer Address Payer Phone Subscriber Number Group Number Insured Name Patient Relationship to Insured Coverage Start Date Coverage End Date [facility] [address] [facility] [place] [id number] Lydia Poe Self - patient is the insured Medical (General) History Medical History History ICD Code Arthritis Back,Hip,and Knee pain High blood pressure Polio Thyroid disorder Measles Chicken pox Joint implants/screws Transfusions Surgical History Surgery Date(Month/Year) leg surgery [phone] [facility]
--- OUTSIDE RECORDS SUMMARY | 2025-01-03 11:04 | XMS_ITS | Patient Health Record ---
Author Organization [facility] Address [address] [place] [id number] Care Team Providers Care Whipper Beater Name Role Phone Connor Simeon MD Primary Care Provider Logan Garcia [phone] Allergies No Known Allergies Reason For Referral No Information Medications Medication SIG (Take, Route, Frequency, Duration) Notes Start Date End Date Status Cranberry 425 MG as directed Orally Active Omeprazole 40 MG 1 capsule Orally Once a day Not-Taking Gabapentin 600 MG 1 tablet Orally Once a day; Duration: 30 day(s) Active Vitamin D-3 25 MCG (1000 UT) 1 capsule Orally Once a day; Duration: 30 day(s) Active Omeprazole 40 MG TAKE ONE CAPSULE BY MOUTH TWO TIMES A DAY; Duration: 90 07/17/2023 Active Vitamin B-12 1000 MCG 1 tablet Orally On ce a day; Duration: 30 day(s) Active Spiriva Respimat 2.5 MCG/ACT Inhalation; Duration: 30 Days Active amLODIPine Besy-Benazepril HCl 5-10 MG as directed Orally Active Levothyroxine Sodium 150 MCG 1 tablet on an empty stomach in the morning Orally Once a day Active Simvastatin 20 MG 1 tablet in the evening Orally Once a day Active ProAir HFA 108 (90 Base) MCG/ACT 2 puffs as needed Inhalation every 4 hrs as needed Active Fluticasone Propionate HFA 110 MCG/ACT 1 puff Inhalation Twice a day as needed Active Joslyn Allergy 180 MG 1 tablet as neede d Orally Once a day Active Ibuprofen 200 MG 1 tablet as needed Orally every 6 hrs Active Immunizations Vaccine Route Administration Date Status Comme nts Influenza Unknown 12/16/2022 Administered Social History Tobacco Use: Social History Observation Description Date Details (start date - stop date) Former Smoker NA - NA Tobacco Use/Smoking Question Answer Notes Patient is a former smoker How long has it been since you last smoked? 5-10 years Alcohol Screen Question Answer Notes Did you have a drink contain ing alcohol in the past year? Yes How often did you have a dri nk containing alcohol in the past year? 2 to 4 times a month (2 points) How many drinks did you have on a typical day when you were drinking in the past year? 1 or 2 drinks (0 point) Points 2 Interpretation Negative Section Notes: Stopped smoking in 2010; no sig alcohol Stopped smoking in 2010; no sig alcohol Stopped smoking in 2010; no sig alcohol Problems Problem Type SNOMED Code ICD Code Onset Dates Problem Status W/U Status Risk Notes Problem Gastro-esophageal reflux disease without esophagitis (092566902) Gastro-esophageal reflux disease without esophagitis (K21.9) Active confirmed Problem Screening for malignant neoplasm of colon (679127399) Encounter for screening for malignant neoplasm of colon (Z12.11) Active confirmed Problem Gastroesophageal reflux disease (115380939) Gastroesophageal reflux disease, esophagitis presence not specified (K21.9) Active confirmed Problem Hiatal hernia (84745053) Hiatal hernia (K44.9) Active confirmed Problem Globus sensation (394210238) Globus sensation (F45.8) Active confirmed Problem Globus sensation (688827347) Globus sensation (R09.89) Active confirmed Problem Gastroesophageal reflux disease (disorder) (347938717) Chronic GERD (K21.9) Active confirmed Vital Signs Blood pressure diastolic 77 mm Hg 07/26/2024 Height 64 in 07/26/2024 Blood pressure systolic 111 mm Hg 07/26/2024 Weight 215 lbs 07/26/2024 BMI 36.9 kg/m2 07/26/2024 Encounters Encounter Location Date Provider Diagnosis [facility] [address] [place] [address] 07/26/2024 Logan Solorio Gastro-esophageal reflux disease without esophagitis K21.9 ; Globus sensation F45.8 ; Hiatal hernia K44.9 and Encounter for screening for malignant neoplasm of colon Z12.11 [facility] [address] [place] [address] 03/31/2024 Logan Solorio Assessments Encounter Date Diagnosis (ICD Code) Assessment Notes Treatment Notes Treatment Clinical Notes Section Notes 07/26/2024 Gastro-esophage al reflux disease without esophagitis (ICD-10 - K21.9) Continue the omeprazole twice na day Overall, Lydia appears quite well. I did review the results of her upper endoscopy with her. She seems to have had a very good response to the increased dose of the 40 mg omeprazole. We did review the hiatal hernia and the fact that she was probably having some ongoing reflux and esophageal spasm contributing to her symptoms. We did discuss surgical options for the hiatal hernia but she is not interested in that at this time as she is currently feeling well on the medication. As such, I have advised her to continue the omeprazole, try to eat carefully, and try to lose some weight in order to control her reflux symptoms. I do not think she would need any further upper endoscopies as long as things remain stable. I did review with her that she will be due for a follow-up colonoscopy in 2026 for screening. If things remain well she will see me otherwise on a as needed basis. Lydia was comfortable with this plan. Thank you again for allowing me to participate in Lydia's care. I shall continue to keep you advised of her progress. 07/26/2024 Globus sensation (ICD-10 - F45.8) Overall, Lydia appears quite well. I did review the results of her upper endoscopy with her. She seems to have had a very good response to the increased dose of the 40 mg omeprazole. We did review the hiatal hernia and the fact that she was probably having some ongoing reflux and esophageal spasm contributing to her symptoms. We did discuss surgical options for the hiatal hernia but she is not interested in that at this time as she is currently feeling well on the medication. As such, I have advised her to continue the omeprazole, try to eat carefully, and try to lose some weight in order to control her reflux symptoms. I do not think she would need any further upper endoscopies as long as things remain stable. I did review with her that she will be due for a follow-up colonoscopy in 2026 for screening. If things remain well she will see me otherwise on a as needed basis. Lydia was comfortable with this plan. Thank you again for allowing me to participate in Lydia's care. I shall continue to keep you advised of her progress. 07/26/2024 Hiatal hernia (ICD-10 - K44.9) Overall, Lydia appears quite well. I did review the results of her upper endoscopy with her. She seems to have had a very good response to the increased dose of the 40 mg omeprazole. We did review the hiatal hernia and the fact that she was probably having some ongoing reflux and esophageal spasm contributing to her symptoms. We did discuss surgical options for the hiatal hernia but she is not interested in that at this time as she is currently feeling well on the medication. As such, I have advised her to continue the omeprazole, try to eat carefully, and try to lose some weight in order to control her reflux symptoms. I do not think she would need any further upper endoscopies as long as things remain stable. I did review with her that she will be due for a follow-up colonoscopy in 2026 for screening. If things remain well she will see me otherwise on a as needed basis. Lydia was comfortable with this plan. Thank you again for allowing me to participate in Lydia's care. I shall continue to keep you advised of her progress. 07/26/2024 Encounter for screening for malignant neoplasm of colon (ICD-10 - Z12.11) Repeat colonoscopy in 2026 Overall, Lydia appears quite well. I did review the results of her upper endoscopy with her. She seems to have had a very good response to the increased dose of the 40 mg omeprazole. We did review the hiatal hernia and the fact that she was probably having some ongoing reflux and esophageal spasm contributing to her symptoms. We did discuss surgical options for the hiatal hernia but she is not interested in that at this time as she is currently feeling well on the medication. As such, I have advised her to continue the omeprazole, try to eat carefully, and try to lose some weight in order to control her reflux symptoms. I do not think she would need any further upper endoscopies as long as things remain stable. I did review with her that she will be due for a follow-up colonoscopy in 2026 for screening. If things remain well she will see me otherwise on a as needed basis. Lydia was comfortable with this plan. Thank you again for allowing me to participate in Lydia's care. I shall continue to keep you advised of her progress. Plan Of Treatment Future Test Test Name Order Date UPPER GI ENDOSCOPY 08/01/2016 COLONOSCOPY 08/01/2016 UPPER GI ENDOSCOPY 07/14/2023 Insurance Providers Payer Name Payer Address Payer Phone Subscriber Number Group Number Insured Name Patient Relationship to Insured Coverage Start Date Coverage End Date [facility] [address] [place] [place] [place] [phone] [id number] LYDIA TREJO Self - patient is the insured Medical (General) History Medical History History ICD Code Hypertension Denies ND,DM,CVA,Lung disease,renal dise ase Ackerman's palsy Hypothyroidism Colonoscopy in 09/2001--hyper plastic polyp, melanosis coli, internal hemorrhoids Polio with left leg weakness Negative Screening colonoscopy in 2016 Upper endoscopy in 2016 with a small hiatal hernia, but no evidence of any significant esophagitis nor Noriega's esophagus Upper endoscopy in October 2023 revealed a moderate-sized hiatal hernia and some changes of reflux, but biopsies were negative for Noriega's esophagus and negative for eosinophilic esophagitis. Surgical History Surgery Date(Month/Year) cataract surgery 02/2024 cataract surgery 2023 D&C Carpal tunnel-right 1997 Right hip replacement 2004 Left leg surgeries due to her polio 1958
== END 2025-01-03 09:50 | disposition home or self-care (01) ==
LOC: HO.MAMMO 09:49
PROVIDERS: PCP Internal Medicine; Visit Provider Nurse Practitioner Family
DX: Z12.31 Encounter for screening mammogram for malignant neoplasm of breast (principal)
CPT/HCPCS: 77063; 77067

== ENCOUNTER → 2025-01-03 10:00 | Outpatient (BNV) | payer MEDICARE, SELFPAY | PROVIDERS: PCP Internal Medicine; Visit Provider Radiology Body Imaging | DX: Z12.31 Encounter for screening mammogram for malignant neoplasm of breast (principal) | CPT/HCPCS: 77063; 77067 ==